=== PATIENT | female | born 2000 | race Caucasian/White ===

== ENCOUNTER 2021-09-01 18:07 | Emergency (ER) | payer OTHER ==
[~2021-09-01 18:07] MED LIST: COLACE 100MG C100 MG PO; FLEXERIL 10 MG10 MG PO; IBUPROFEN600 MG PO; LORTAB 5-325 M1 EACH PO; PRENATAL VITAM1 EAC3 PO
[2021-09-01 19:14] LABS: HEMOGLOBIN 12.2 gm/dl (12.3-15.3); RED BLOOD COUNT 4.55 M/UL (4.00-5.10); WHITE BLOOD COUNT 9.6 K/UL (4.5-11.0)
[2021-09-01 19:34] LABS: BUN/CREATININE RATIO 11 (0-10)
[2021-09-01] MEDS ORDERED: KEFLEX750 MG PO (21:21)
== END 2021-09-01 21:57 | disposition home or self-care (01) ==
LOC: ER1 18:07
PROVIDERS: Physician Assistant
DX: N39.0 Urinary tract infection, site not specified (principal)
CPT/HCPCS: 80053; 81001; 83690; 84703; 85025; 87077; 87086; 87186; 96374; 99284; J0690; Q9967

== ENCOUNTER 2022-03-25 19:04 | Emergency (ER) | payer OTHER ==
[~2022-03-25 19:04] MED LIST changes: +KEFLEX750 MG PO
== END 2022-03-25 21:09 | disposition left against medical advice (07) ==
LOC: ER1 19:04
DX: S93.491A Sprain of other ligament of right ankle, initial encounter (principal); X50.9XXA Other and unspecified overexertion or strenuous movements or postures, initial encounter; Y92.009 Unspecified place in unspecified non-institutional (private) residence as the place of occurrence of the external cause
CPT/HCPCS: 73610; 99283